=== PATIENT | female | born 1965 | race American Indian/Alaskan Native ===

== ENCOUNTER 2019-01-12 16:55 | Emergency (ER) | payer SELFPAY ==
--- NOTE | 2019-01-12 17:22 | Emergency Department Report ---
Blank Doc - Documentation Documentation: This is a 53-year-old female that presents with sore throat, body aches, nausea, and subjective fever. This initial assessment/diagnostic orders/clinical plan/treatment(s) is/are subject to change based on patient's health status, clinical progression and re- assessment by fellow clinical providers in the ED. Further treatment and workup at subsequent clinical providers discretion. Patient/guardians urged not to elope from the ED as their condition may be serious if not clinically assessed and managed. Initial orders include: 1- Patient sent to [facility] for further evaluation and treatment 2- strep test
[2019-01-12 17:50] LABS: Basophils # (Auto) 0.1 K/mm3 (0.0-0.1); Basophils % (Auto) 1.6 % (0.0-1.8); Eosinophils # (Auto) 0.1 K/mm3 (0.0-0.4); Eosinophils % (Auto) 1.2 % (0.0-4.3); Hematocrit 40.6 % (30.3-42.9); Hemoglobin 13.5 gm/dl (10.1-14.3); Lymphocytes % (Auto) 36.5 % (13.4-35.0); Mean Corpuscular HGB Conc 33 % (30-34); Mean Corpuscular Volume 88 fl (79-97); Monocytes # (Auto) 0.3 K/mm3 (0.0-0.8); Monocytes % (Auto) 6.3 % (0.0-7.3); Platelet Count 268 K/mm3 (140-440); Red Blood Count 4.61 M/mm3 (3.65-5.03); Red Cell Distribution Width 14.2 % (13.2-15.2)
[2019-01-12 18:10] LABS: BUN/Creatinine Ratio 14; Blood Urea Nitrogen 14 mg/dL (7-17); Calcium 9.4 mg/dL (8.4-10.2); Hemolysis Index 7
[2019-01-12 19:22] LABS: Bilirubin,Urine NEG (Negative); Blood,Urine NEG (Negative); Color,Urine Yellow (Yellow); Mucus,Urine FEW /HPF; Protein,Urine <15 mg/dL mg/dL (Negative); Urobilinogen,Urine < 2.0 mg/dL (<2.0)
[2019-01-12] MEDS ORDERED: ZOFRAN ODT PO ONE (19:50)
[2019-01-12] MEDS ORDERED: ALUM-MAG HYDROX-SIMETH 200-200-20MG/5ML PO ONE (19:51)
[2019-01-12] MEDS ORDERED: LIDOCAINE VISCOUS 2% PO ONE (19:51)
--- NOTE | 2019-01-12 20:43 | Emergency Department Report ---
ED N/V/D HPI - General Chief complaint: Nausea/Vomiting/Diarrhea Stated complaint: FLU LIKE SYM Time Seen by Provider: 01/12/19 17:21 Source: patient Mode of arrival: Ambulatory Limitations: No Limitations - History of Present Illness Initial comments: This is a 53-year-old female that presents with sore throat, body aches, nausea, and subjective fever. - Related Data Home Medications Medication Instructions Recorded Confirmed Last Taken Citalopram Hydrobromide [celeXA] 20 mg PO DAILY 01/30/16 01/30/16 Unknown traZODone [Desyrel] 100 mg PO QHS 01/30/16 01/30/16 Unknown Previous Rx's Medication Instructions Recorded Last Taken Type Ibuprofen [Motrin] 800 mg PO Q8HR PRN #20 tablet 01/30/16 Unknown Rx Dicyclomine [Bentyl] 10 mg PO QID #40 capsule 01/12/19 Unknown Rx Ondansetron [Zofran Odt] 4 mg PO Q8HR #12 tab.rapdis 01/12/19 Unknown Rx Allergies Allergy/AdvReac Type Severity Reaction Status Date / Time No Known Allergies Allergy Unverified 01/30/16 14:49 ED Review of Systems ROS: Stated complaint: FLU LIKE SYM Other details as noted in HPI ED Past Medical Hx - Surgical History Additional Surgical History: acid reflux surgery - Social History Smoking Status: Current Every Day Smoker Substance Use Type: Alcohol - Medications Home Medications: Home Medications Medication Instructions Recorded Confirmed Last Taken Type Citalopram Hydrobromide [celeXA] 20 mg PO DAILY 01/30/16 01/30/16 Unknown History Ibuprofen [Motrin] 800 mg PO Q8HR PRN #20 tablet 01/30/16 Unknown Rx traZODone [Desyrel] 100 mg PO QHS 01/30/16 01/30/16 Unknown History Dicyclomine [Bentyl] 10 mg PO QID #40 capsule 01/12/19 Unknown Rx Ondansetron [Zofran Odt] 4 mg PO Q8HR #12 tab.rapdis 01/12/19 Unknown Rx ED Physical Exam - General Limitations: No Limitations ED Course Vital Signs 01/12/19 17:22 Temperature 98.9 F Pulse Rate 92 H Respiratory 18 Rate Blood Pressure 128/68 O2 Sat by Pulse 100 Oximetry ED Medical Decision Making - Lab Data Result diagrams: 01/12/19 17:37 01/12/19 17:37 Labs 01/12/19 01/12/19 01/12/19 17:37 17:37 18:58 WBC 5.4 RBC 4.61 Hgb 13.5 Hct 40.6 MCV 88 MCH 29 MCHC 33 RDW 14.2 Plt Count 268 Lymph % (Auto) 36.5 H [place] % (Auto) 6.3 Eos % (Auto) 1.2 Baso % (Auto) 1.6 Lymph # 2.0 Bucks # 0.3 Eos # 0.1 Baso # 0.1 Seg Neutrophils % 54.4 Seg Neutrophils # 3.0 Sodium 139 Potassium 4.3 Chloride 100.7 Carbon Dioxide 28 Anion Gap 15 BUN 14 Creatinine 1.0 Estimated GFR > 60 BUN/Creatinine Ratio 14 Glucose 110 H Calcium 9.4 Urine Color Yellow Urine Turbidity Clear Urine pH 6.0 Ur Specific [place] 1.021 Urine Protein <15 mg/dl Urine Glucose (UA) Neg Urine Ketones Neg Urine Blood Neg Urine Nitrite Neg Urine Bilirubin Neg Urine Urobilinogen < 2.0 Ur Leukocyte Esterase Neg Urine WBC (Auto) 2.0 Urine RBC (Auto) 1.0 U Epithel Cells (Auto) 1.0 Urine Mucus Few - Medical Decision Making symptoms resolved with zofran odt, no abd pain no n/v pt is tolerating po intake there is no fever or chills plan dc to home continue to hydrate po follow up with pcp in 2-3 days return to ed if symptoms worsen. pt verbalized agreement and understanding of discharge plan Critical care attestation.: If time is entered above; I have spent that time in minutes in the direct care of this critically ill patient, excluding procedure time. ED Disposition Clinical Impression: Viral syndrome Nausea & vomiting Qualifiers: Vomiting type: unspecified Vomiting Intractability: non-intractable Qualified Code(s): R11.2 - Nausea with vomiting, unspecified Disposition: DC-01 TO HOME OR SELFCARE Is pt being admited?: No Does the pt Need Aspirin: No Condition: Stable Instructions: Acute Nausea and Vomiting (ED), Viral Syndrome (ED) Prescriptions: Dicyclomine [Bentyl] 10 mg PO QID #40 capsule Ondansetron [Zofran Odt] 4 mg PO Q8HR #12 tab.rapdis Referrals: [facility] [Provider Group] - 3-5 Days Forms: Work/School Release Form(ED) Time of Disposition: 20:44
[2019-01-12 20:52] LABS: Alanine Aminotransferase 11 units/L (7-56); Albumin 4.6 g/dL (3.9-5)
[2019-01-12 20:54] VITALS: BP 127/73
[2019-01-12 21:03] LABS: Bilirubin,Direct < 0.2 mg/dL (0-0.2)
== END 2019-01-12 20:51 | disposition home or self-care (01) ==
LOC: ED 16:55
DX: B34.9 Viral infection, unspecified (principal); R11.2 Nausea with vomiting, unspecified; Z79.1 Long term (current) use of non-steroidal anti-inflammatories (NSAID); Z79.899 Other long term (current) drug therapy; F17.200 Nicotine dependence, unspecified, uncomplicated
CPT/HCPCS: 36415; 80048; 80076; 81001; 83690; 85025; 99283; Q0162

== ENCOUNTER 2019-07-22 19:36 | Emergency (ER) | payer SELFPAY ==
--- NOTE | 2019-07-22 23:46 | Emergency Department Report ---
Minor Respiratory - HPI Chief Complaint: Fever Stated Complaint: FLU SYMPTOMS Time Seen by Provider: 07/22/19 23:41 Minor Respiratory: Yes Rhinorrhea, Yes Cough, No Sore Throat, No Able to Tolerate Fluids, No Ear Pain, No Sick Contacts, No Hemoptysis, No Chest Pain, No Shortness of Breath, No Fever Other History: This is a 53-year-old patient here report that she is having sinus pain and pressure, cough and congestion ongoing over the last week but developed fever over thelast 2 days. The chest pain or shortness of breath. She said she took TheraFlu at home this morning. Generalized aching 04/09. Dry cough, no sore throats. ED Review of Systems ROS: Stated complaint: FLU SYMPTOMS Other details as noted in HPI Constitutional: fever ENT: congestion. denies: ear pain, throat pain Respiratory: cough. denies: shortness of breath, SOB with exertion, SOB at rest, wheezing Cardiovascular: denies: chest pain, palpitations Gastrointestinal: denies: nausea, vomiting Musculoskeletal: denies: back pain, joint swelling, arthralgia Skin: denies: rash Neurological: denies: headache ED Past Medical Hx - Past Medical History Previous Medical History?: No - Surgical History Past Surgical History?: Yes Additional Surgical History: acid reflux surgery - Family History Family history: hypertension - Social History Smoking Status: Never Smoker Substance Use Type: None - Medications Home Medications: Home Medications Medication Instructions Recorded Confirmed Last Taken Type Citalopram Hydrobromide [celeXA] 20 mg PO DAILY 01/30/16 01/30/16 Unknown History Ibuprofen [Motrin] 800 mg PO Q8HR PRN #20 tablet 01/30/16 Unknown Rx traZODone [Desyrel] 100 mg PO QHS 01/30/16 01/30/16 Unknown History Dicyclomine [Bentyl] 10 mg PO QID #40 capsule 01/12/19 Unknown Rx Ondansetron [Zofran Odt] 4 mg PO Q8HR #12 tab.rapdis 01/12/19 Unknown Rx Amoxicillin/Potassium Clav 1 each PO Q12H 10 Days #20 tablet 07/23/19 Unknown Rx [Augmentin 875-125 Tablet] Cetirizine HCl [ZyrTEC] 10 mg PO QAM 14 Days #14 capsule 07/23/19 Unknown Rx Fluticasone [Flonase] 1 spray NS QDAY 14 Days #1 bottle 07/23/19 Unknown Rx methylPREDNISolone [Medrol 4MG 4 mg PO QAM 6 Days #1 tab.ds.pk 07/23/19 Unknown Rx DOSEPAK (21 tabs)] Minor Respiratory Exam - Exam General: Vital signs noted. No distress. Alert and acting appropriately. 53-year-old patient in no acute distress HEENT: Yes Moist Mucous Membranes, Yes Rhinorrhea, Yes Frontal Tenderness, Yes Maxillary Tenderness, No Pharyngeal Erythema, No Pharyngeal Exudates, No Conjuctival Injection Ear: Neither TM Bulge (bilateral middle ear congestion), Neither TM Erythema, Neither EAC Pain, Neither EAC Discharge Neck: Yes Supple, No Adenopathy Lungs: Yes Good Air Exchange, Yes Cough (Dry), No Wheezes, No Ronchi, No Stridor, No Labored Respirations, No Retractions, No Use of Accessory Muscles, No Other Abnormal Lung Sounds Heart: Yes Regular, No Murmur Abdomen: Yes Normal Bowel Sounds, No Tenderness, No Peritoneal Signs Skin: No Rash, No Edema Neurologic: Alert and oriented, no deficits. Musculoskeletal: Unremarkable. ED Course Vital Signs 07/22/19 20:21 Temperature 99.3 F Pulse Rate 83 Respiratory 18 Rate Blood Pressure 129/75 O2 Sat by Pulse 98 Oximetry Vital Signs 07/22/19 07/23/19 20:21 00:47 Temperature 99.3 F 99.8 F H Pulse Rate 83 89 Respiratory 18 20 Rate Blood Pressure 129/75 Blood Pressure 119/71 [Left] O2 Sat by Pulse 98 98 Oximetry - Reevaluation(s) Reevaluation #1: 07/23/19 00:55 Given ibuprofen 800 mg in emergency room for body ache especially if they are aching. She was also given Decadron 10 mg IM for sinus infection. ED Medical Decision Making - Radiology Data Radiology results: report reviewed Chest x-ray PA and lateral dictated by radiologist and report reviewed by myself. Please see details below Findings [facility] [address] [place] [address] XRay Report Signed Patient: MARTINA LUCAS MR#: [id number] : 1965 Acct:[id number] Age/Sex: 53 / F ADM Date: 07/22/19 Loc: ED Attending Dr: Ordering Physician: SHARON PAYTON Date of Service: 07/22/19 Procedure(s): XR chest routine 2V Accession Number(s): [id number] cc: SHARON PAYTON Fluoro Time In Minutes: CHEST PA AND LATERAL VIEWS INDICATION: cough, fever. COMPARISON: None. FINDINGS: Support devices: None. Heart: Within normal limits. Lungs/Pleura: No acute pulmonary or pleural findings. IMPRESSION: 1. No acute findings. Signer Name: Sachin Trinidad MD Signed: 07/23/2019 12:12 AM Workstation Name: [id number] Transcribed By: PUMA Dictated By: Sachin Trinidad MD Electronically Authenticated By: Sachin Trinidad MD Signed Date/Time: 07/23/1911 DD/ TD/TT: - Medical Decision Making This is a 53-year-old patient here for upper respiratory symptoms. Patient found to have acute sinusitis with cough. Patient is given Decadron grams IM and Motrin 800 mg by mouth. Chest x-ray dictated by radiologist and report reviewed by myself in no acute findings. I discussed the patient her diagnosis and treatment plan. She was understanding. Discharged home in stable condition with prescription for Medrol Dosepak, Augmentin, Flonase and Zyrtec Critical care attestation.: If time is entered above; I have spent that time in minutes in the direct care of this critically ill patient, excluding procedure time. ED Disposition Clinical Impression: Acute sinusitis Qualifiers: Sinusitis location: pansinusitis Recurrence: not specified as recurrent Qualified Code(s): J01.40 - Acute pansinusitis, unspecified Disposition: DC- TO HOME OR SELFCARE Is pt being admited?: No Does the pt Need Aspirin: No Condition: Stable Instructions: Sinusitis (ED) Additional Instructions: Please follow-up with your primary care physician and 3-5 days If your Symptoms worsens, return to the emergency room Prescriptions: Amoxicillin/Potassium Clav [Augmentin 875-125 Tablet] 1 each PO Q12H 10 Days #20 tablet Fluticasone [Flonase] 1 spray NS QDAY 14 Days #1 bottle methylPREDNISolone [Medrol 4MG DOSEPAK (21 tabs)] 4 mg PO QAM 6 Days #1 tab.ds.pk Cetirizine HCl [ZyrTEC] 10 mg PO QAM 14 Days #14 capsule Referrals: PRIMARY CARE, [Primary Care Provider] - 3-5 Days Forms: Work/School Release Form(ED)
[2019-07-22] MEDS ORDERED: IBUPROFEN 800 MG TAB PO ONE (23:47)
[2019-07-22] MEDS ORDERED: dexAMETHasone 4 MG/ML VIAL IM STA (23:47)
--- NOTE | 2019-07-23 00:16 | XRay Report ---
CHEST PA AND LATERAL VIEWS INDICATION: cough, fever. COMPARISON: None. FINDINGS: Support devices: None. Heart: Within normal limits. Lungs/Pleura: No acute pulmonary or pleural findings. IMPRESSION: 1. No acute findings. Signer Name: Sachin Trinidad MD Signed: 07/23/2019 12:12 AM Workstation Name: [id number]
[2019-07-23 00:48] VITALS: BP 119/71
== END 2019-07-23 02:05 | disposition home or self-care (01) ==
LOC: ED 19:36
DX: J01.90 Acute sinusitis, unspecified (principal); Z79.899 Other long term (current) drug therapy
CPT/HCPCS: 71046; 96372; 99283; J1100